=== PATIENT | female | born 1945 | race Caucasian/White ===

== ENCOUNTER → 2017-03-31 | Outpatient (CLI) | payer MEDICARE ==
[~2017-03-31] MED LIST: DESYREL 50MG50 MG PO; GLUCOPHAGE500 MG/TAB PO; GLUCOTROL10 MG PO; HCTZ 25MG TAB25 MG PO; PRINIVIL20 MG PO; TENORMIN 5050 MG/TAB PO; ZOFRAN 4MG T4 MG/TAB PO
== END ==
LOC: SUN.DIA 12:43
DX: E11.40 Type 2 diabetes mellitus with diabetic neuropathy, unspecified (principal); I10 Essential (primary) hypertension; H91.90 Unspecified hearing loss, unspecified ear; F32.9 Major depressive disorder, single episode, unspecified; Z68.33 Body mass index [BMI] 33.0-33.9, adult; Z79.4 Long term (current) use of insulin; Z71.3 Dietary counseling and surveillance
CPT/HCPCS: G0108

== ENCOUNTER → 2017-04-03 | Outpatient (CLI) | payer MEDICARE | LOC: SUN.DIA 10:09 | DX: E11.9 Type 2 diabetes mellitus without complications (principal); Z79.4 Long term (current) use of insulin; I10 Essential (primary) hypertension; Z68.32 Body mass index [BMI] 32.0-32.9, adult; Z71.3 Dietary counseling and surveillance | CPT/HCPCS: G0108 ==

== ENCOUNTER → 2017-07-16 | Outpatient (CLI) | payer OTHER ==
[2017-07-16 09:17] LABS: BASO # 0.1 (0.0-0.2); BASO % 0.8 % (0.0-2.0); EOS # 0.1 (0.0-0.7); EOS % 1.9 % (0-4.0); GRAN # 5.1 (1.4-6.5); GRAN % 67.4 % (42.2-75.2); HEMATOCRIT 37.2 % (37.0-47.0); HEMOGLOBIN 12.3 g/dl (12.5-16.0); LYMPH # 1.7 (1.2-3.4); LYMPH % 22.9 % (20.0-51.0); MEAN CELL VOLUME 88 fl (80.0-100.0); MEAN CORPUSCULAR HEMOGLOBIN 29 pg (27.0-31.0); MEAN CORPUSCULAR HGB CONC 33 g/dl (33.0-37.0); MEAN PLATELET VOLUME 11.4 fl (7.4-10.4); MONO # 0.5 (0.1-0.6); MONO % 6.5 % (1.7-9.3); PLATELET COUNT 234 K/mm3 (130-400); RED BLOOD COUNT 4.21 M/mm3 (4.10-5.30); WHITE BLOOD COUNT 7.6 K/mm3 (4.8-10.8)
[2017-07-16 09:40] LABS: ERYTHROCYTE SEDIMENTATION RATE 38 mm/hr (0-30)
== END ==
LOC: COL.RAD 07:46
PROVIDERS: Orthopaedic Surgery Sports Medicine
DX: M25.512 Pain in left shoulder (principal)
CPT/HCPCS: J3301; Q9967

== ENCOUNTER → 2017-09-15 | Outpatient (CLI) | payer OTHER, MEDICARE | LOC: COL.RAD 12:54 | DX: M25.512 Pain in left shoulder (principal) | CPT/HCPCS: J3301 ==

== ENCOUNTER → 2017-11-17 | Outpatient (CLI) | payer OTHER, MEDICARE | LOC: MHCPAIN 10:12 | DX: G89.29 Other chronic pain (principal); M79.2 Neuralgia and neuritis, unspecified; M79.1 Myalgia | CPT/HCPCS: G0463 ==

== ENCOUNTER → 2017-12-31 | Outpatient (CLI) | payer OTHER, MEDICARE | LOC: MHCPAIN 09:50 | DX: G89.29 Other chronic pain (principal); M79.2 Neuralgia and neuritis, unspecified; M79.1 Myalgia; M25.512 Pain in left shoulder | CPT/HCPCS: G0463 ==

== ENCOUNTER → 2018-08-03 | Outpatient (CLI) | payer OTHER, MEDICARE, BC | LOC: COL.RAD 07-24 09:15 | DX: M25.512 Pain in left shoulder (principal) ==

== ENCOUNTER → 2018-09-07 | Outpatient (CLI) | payer OTHER, MEDICARE, BC | LOC: COL.RAD 08:00 | DX: M25.512 Pain in left shoulder (principal) ==

== ENCOUNTER → 2018-11-10 | Outpatient (REF) | LOC: ZLAB.WCH 16:04 | DX: Z01.89 Encounter for other specified special examinations (principal) ==

== ENCOUNTER → 2018-12-31 | Outpatient (CLI) | payer MEDICARE, BC | LOC: ZCOL.LAB 16:31 | DX: E11.621 Type 2 diabetes mellitus with foot ulcer (principal) ==

== ENCOUNTER → 2019-05-27 | Outpatient (CLI) | payer MEDICARE, BC ==
[~2019-05-27] MED LIST changes: +COLACE 100100 MG/CAP PO; +COREG12.5 MG PO; +DULCOLAX S10 MG/SUPP RC; +LEVEMIR100 U/ML SQ; +LOVENOX 3030 MG/0.3 SQ; +MIRALAX PA17 GM/Dose PO; +NEURONTIN600 MG/TAB PO; +NOVOLOG 100U100 U/M1 SQ; +PROTONIX 40MG T40 MG PO; +TYLENOL 325MG325 MG PO; +VANCOMYCIN500 MG/VIA IV; +ZESTRIL 20MG TA20 MG PO; +ZOFRAN8 MG PO
== END ==
LOC: ZCOL.LAB 12:26
DX: Z01.89 Encounter for other specified special examinations (principal)

== ENCOUNTER 2019-05-28 10:10 | Outpatient (RCR) | payer MEDICARE, BC ==
[~2019-05-28] VITALS: Ht 160 cm; Wt 75.0 kg
[~2019-05-28 10:10] MED LIST changes: -COLACE 100100 MG/CAP PO; -COREG12.5 MG PO; -DULCOLAX S10 MG/SUPP RC; -LEVEMIR100 U/ML SQ; -LOVENOX 3030 MG/0.3 SQ; -MIRALAX PA17 GM/Dose PO; -NEURONTIN600 MG/TAB PO; -NOVOLOG 100U100 U/M1 SQ; -PROTONIX 40MG T40 MG PO; -TYLENOL 325MG325 MG PO; -VANCOMYCIN500 MG/VIA IV; -ZESTRIL 20MG TA20 MG PO; -ZOFRAN8 MG PO
[2019-05-28 10:43] VITALS: BP 147/74; PULSE 82; TEMP 98
[2019-05-28] MEDS ORDERED: HCTZ 25MG TAB25 MG PO (12:33)
[2019-05-28] MEDS ORDERED: ZESTRIL 20MG TA20 MG PO (12:33)
[2019-05-28] MEDS ORDERED: LOVENOX 3030 MG/0.3 SQ (12:34)
[2019-05-28] MEDS ORDERED: VANCOMYCIN500 MG/VIA IV (12:38)
[2019-05-28] MEDS ORDERED: PROTONIX 40MG T40 MG PO (12:39)
[2019-05-28] MEDS ORDERED: COLACE 100100 MG/CAP PO (12:40)
[2019-05-28] MEDS ORDERED: NEURONTIN600 MG/TAB PO (12:40)
[2019-05-28] MEDS ORDERED: LEVEMIR100 U/ML SQ (12:40)
[2019-05-28] MEDS ORDERED: NOVOLOG 100U100 U/M1 SQ (12:41)
[2019-05-28] MEDS ORDERED: COREG12.5 MG PO (12:41)
[2019-05-28] MEDS ORDERED: MIRALAX PA17 GM/Dose PO (12:42)
[2019-05-28] MEDS ORDERED: ZOFRAN8 MG PO (12:42)
[2019-05-28] MEDS ORDERED: DULCOLAX S10 MG/SUPP RC (12:43)
[2019-05-28] MEDS ORDERED: TYLENOL 325MG325 MG PO (12:43)
== END 2019-05-28 12:44 | disposition short-term general hospital (02) ==
LOC: EUO 10:10
DX: L03.90 Cellulitis, unspecified (principal)
CPT/HCPCS: C1751

== ENCOUNTER 2020-02-01 20:40 | Inpatient (IN) | payer MEDICARE ==
[~2020-02-01] VITALS: Ht 160 cm; Wt 77.8 kg
[2020-02-01] VITALS (45 sets, daily range): BP systolic 128; BP diastolic 83; PULSE 79; TEMP 98.1; O2SAT 89–99
[~2020-02-01 20:40] MED LIST changes: +COLACE 100100 MG/CAP PO; +COREG12.5 MG PO; +DULCOLAX S10 MG/SUPP RC; +LEVEMIR100 U/ML SQ; +LOVENOX 3030 MG/0.3 SQ; +MIRALAX PA17 GM/Dose PO; +NEURONTIN600 MG/TAB PO; +NOVOLOG 100U100 U/M1 SQ; +PROTONIX 40MG T40 MG PO; +TYLENOL 500MG500 MG PO; +VANCOMYCIN500 MG/VIA IV; +ZESTRIL 20MG TA20 MG PO; +ZOFRAN8 MG PO
--- NOTE | 2020-02-01 22:30 | NUR ---
PT arrived to the unit at 2200 via EMS. PT transfered self to bed with assistance of staff, stated some dizziness. PT attached to [facility] and it was noted that PT was on 5mg/hr of Cardene from previous facility, continued per provider order. While asking the patient the suicide screening questions, PT answered yes to a majority of the questions. Provider, Esme AVILES, immediately notified and discussed patient mental health hx with the patient this RN to make a plan of care and discuss what the patient is feeling, why, and what we can do to help the PT be safe while being here. PT stated she had a suicide attempt 4 or so months ago by injecting herself with extra insulin but stated she failed because she was unsure as to how her insulin pen worked. States that she talks to several of her family members whenever she is feeling down. Provider gave order for level II suicide precautions. This RN asked STEFAN Victoria if the patient can keep her phone since her family is her main support system and provider stated that the PT can keep her phone. PT room made suicide safe and informed PT of the steps we were taking to keep her safe. Will continue to monitor closely.
[2020-02-02] VITALS (509 sets, daily range): BP systolic 127–185; BP diastolic 63–95; PULSE 77–90; TEMP 97.5–98.1; O2SAT 81–100
[2020-02-02] MEDS ORDERED: LEVEMIR100 U/ML SQ (00:33)
[2020-02-02 01:05] LABS: ACETAMINOPHEN < 10 ug/mL (10-30); ALCOHOL(ethanol),MEDICAL < 10 mg/dL; SALICYLATE < 1.0 mg/dL
[2020-02-02 01:33] LABS: TROPONIN-I 0.051 ng/mL (0.000-0.035)
[2020-02-02 03:12] LABS: CHOLESTEROL RISK RATIO 5.7
[2020-02-02 03:18] LABS: TRICYCLIC ANTIDEPRESS URINE NEGATIVE
[2020-02-02 05:00] LABS: BASO # 0.1 (0.0-0.2); BASO % 0.7 % (0.0-2.0); EOS # 0.1 (0.0-0.7); EOS % 1.4 % (0-4.0); GRAN # 7.6 (1.4-6.5); GRAN % 72.9 % (42.2-75.2); HEMOGLOBIN 10.8 g/dl (12.5-16.0); LYMPH # 1.8 (1.2-3.4); LYMPH % 17.8 % (20.0-51.0); MEAN CELL VOLUME 87 fl (80.0-100.0); MEAN CORPUSCULAR HEMOGLOBIN 30 pg (27.0-31.0); MEAN CORPUSCULAR HGB CONC 34 g/dl (33.0-37.0); MEAN PLATELET VOLUME 11.5 fl (7.4-10.4); MONO # 0.7 (0.1-0.6); MONO % 6.8 % (1.7-9.3); PLATELET COUNT 213 K/mm3 (130-400); RED BLOOD COUNT 3.65 M/mm3 (4.10-5.30); REDCELL DISTRIBUTION WIDTH-CV 13.7 % (11.5-14.5)
[2020-02-02 05:01] LABS: HEMATOCRIT 31.9 % (37.0-47.0)
[2020-02-02 05:08] LABS: CALCIUM 8.9 mg/dL (8.4-10.2); CREATININE, serum 1.17 (0.52-1.25); POTASSIUM 3.6 mmol/L (3.4-5.0)
--- NOTE | 2020-02-02 10:22 | NUR ---
SW's met with the patient to discuss discharge plan. The patient lives in [place] with her , Justyn (ph#[phone]). She reports independence with ADLs and has a cane and walker. The patient's PCP is Dr. Renata Cruz and she receives her medications at [facility]. She reports no difficulties obtaining her meds. The patient does not have advanced directives in EMR, but she reports that she does have them completed and that her daughter, Becca (ph#[phone]), is her DPOA-HC. Becca lives in [place]. The patient attempted suicide four months ago. She states that she does not see any one for her mental health. She states that her family is a great support system for her. The patient plans to return home with her upon discharge. DANUTA then contacted the patient's Justyn. Justyn confirmed the above information. He states that he will reach out to Becca to find out if she does have the DPOA-HC paperwork and will contact DANUTA back. DANUTA to ask for PT/OT to be ordered. DANUTA to continue to follow.
--- NOTE | 2020-02-02 11:23 | NUR ---
Pt up to BSC with x1 assist. Steady gait. Pt denies any vertigo or nausea with activity. Pt back to bed with x1 assist. Dr Alberto at bedside to see pt.
--- NOTE | 2020-02-02 13:40 | NUR ---
Talked with [employer] Screener on the phone. Will come in tomorrow February, at 11am to screen patient. Pt's facesheet faxed over their office, fax #[phone].
--- NOTE | 2020-02-02 13:51 | NUR ---
The patient's daughter, Becca, contacted DANUTA. Becca reports that she is the patient's DPOA-HC and that she does not have a copy of the forms. She states that [facility] should have a copy though. DANUTA contacted medical records at [facility]. Medical records reports that they do a copy of her DPOA-HC and will fax it to case management. DANUTA contacted and updated the patient's daughter.
--- NOTE | 2020-02-02 14:36 | NUR ---
Pt left for MRI with lead based paint technician via wheelchair.
--- NOTE | 2020-02-02 16:00 | NUR ---
Dr Susy dey with pt having dtr visit. Pt back to ICU bed 8 from MRI at 1550. Pt stand by assist to ICU bed, steady gait. Pt connected to CRM. Pt denies vertigo and pain. Pt's dtr updated on pt status and plan of care. Answered questions to dtr's satisfaction. Call light in reach.
[2020-02-03] VITALS (245 sets, daily range): BP systolic 138–195; BP diastolic 68–94; PULSE 70–100; TEMP 97.5–98.2; O2SAT 93–100
[2020-02-03 06:41] LABS: BASO # 0.1 (0.0-0.2); BASO % 0.8 % (0.0-2.0); EOS # 0.2 (0.0-0.7); EOS % 2.2 % (0-4.0); GRAN # 5.8 (1.4-6.5); LYMPH # 2.1 (1.2-3.4); LYMPH % 23.9 % (20.0-51.0); MEAN CELL VOLUME 87 fl (80.0-100.0); MEAN CORPUSCULAR HEMOGLOBIN 30 pg (27.0-31.0); MEAN CORPUSCULAR HGB CONC 34 g/dl (33.0-37.0); MEAN PLATELET VOLUME 11.2 fl (7.4-10.4); MONO # 0.6 (0.1-0.6); MONO % 6.6 % (1.7-9.3); PLATELET COUNT 247 K/mm3 (130-400); RED BLOOD COUNT 4.06 M/mm3 (4.10-5.30); REDCELL DISTRIBUTION WIDTH-CV 13.7 % (11.5-14.5)
[2020-02-03 06:43] LABS: HEMATOCRIT 35.5 % (37.0-47.0)
[2020-02-03 06:48] LABS: CALCIUM 9.5 mg/dL (8.4-10.2); CREATININE, serum 1.33 (0.52-1.25); POTASSIUM 3.7 mmol/L (3.4-5.0)
--- NOTE | 2020-02-03 09:42 | NUR ---
DANUTA received the patient's DPOA-HC, via fax, from [facility]. The patient had designated her , Josh, as her DPOA-HC and her daughter as the alternate. SW met with the patient to inform. The patient reports that this DPOA-HC is accurate and would like to keep her as her DPOA-HC. SW contacted and updated the patient's . SW placed the DPOA-HC is the patient's chart.
--- NOTE | 2020-02-03 10:14 | NUR ---
Ari screening complete: Plan is for Saftey Plan and ok to go home if medically stable - OK by screener for pt to have all belongings. Q15min suicide checks no longer required - MD Susy notified - order discontinued
--- NOTE | 2020-02-03 10:38 | NUR ---
aNvie obtained from [facility], given to PRAKASH Michele.
--- NOTE | 2020-02-03 14:37 | NUR ---
[facility] came and screened the patient and came up with a safety plan with her. PT worked with the patient and the patient did not feel good and did not feel comfortable ambulating. She states that she has "drop attacks." PT plans to attempt to work with her again this afternoon. SW then followed up with the patient to review discharge plan. The patient reports that she does not want to get home and then fail and have to return back here. She states that she has done post-acute rehab in the past and would be interested in rehab again. The patient chose 1) [facility] 2) [facility]. She states that she would not want to go to a intermediate. SW consulted Latoya at [facility] and [facility] with [facility]. SW awaiting their screens and will continue to follow.
--- NOTE | 2020-02-03 18:21 | NUR ---
PT ARRIVED TO FLOOR AND SETTLED IN TO ROOM. ORIENTED HER TO CALL LIGHT AND TV REMOTE. PT IN CHAIR, ICE WATER BROUGHT IN, WARM BLANKETS BROUGHT IN, PT BELONGINGS BROUGHT TO CHAIR PER PT REQUEST. DINNER DELIVERED TO ROOM. NO OTHER NEEDS AT THIS TIME.
--- NOTE | 2020-02-03 22:35 | NUR ---
IN TO ASSESS PATIENT. SHE WAS LAYING IN BED. PATIENT APPEARS TO THIS NURSE THAT SHE HAS A VERY FLAT AFFECT. SHE IS ALERT AND ORIENTATED X4. PATIENT HAS AN INT TO HER RIGHT FOREARM. LUNG SOUNDS ARE CLEAR.
[2020-02-04] VITALS (7 sets, daily range): BP systolic 129–187; BP diastolic 64–90; PULSE 82–88; TEMP 97.4–98.7
--- NOTE | 2020-02-04 05:30 | NUR ---
PATIENT HAS SLEPT THROUGH THE SHIFT WITH NO COMPLAINTS. PATIENT TOOK AT SHOWER AT AROUND 0500. PATIENT DENIES ANY OTHER NEEDS AT THIS TIME. WILL REPORT OFF TO DAY SHIFT. SHE HAS INT TO HER RW. SHE WAS GIVEN 4 U OF NOVOLOG AND LEVIMIR INSULIN AT FOR A BLOOD SUGAR OF 173. PATIENT JUST APPEARS TO HAVE A FLAT AFFECT WITH NO EMOTIONS SHOWN. PATIENT IS ON TELEY AND NO COMPLAINTS OR ISSUES NOTED THERE THROUGH OUT THE SHIFT. PATIENT HAS A POSSIBLE D/C TODAY (02/03) PENDING EEG PER PROVIDER NOTES.
--- NOTE | 2020-02-04 08:00 | NUR ---
Assessment complete. Patient A&Ox3, sitting up in the recliner. Denies pain and discomfort. IV CDI. HRR, telemetry on chest. VSS BP elevated. No further needs expressed from patient. Call light within reach.
[2020-02-04 10:23] LABS: BASO # 0.1 (0.0-0.2); BASO % 0.7 % (0.0-2.0); EOS # 0.1 (0.0-0.7); EOS % 1.5 % (0-4.0); GRAN # 5.4 (1.4-6.5); GRAN % 71.2 % (42.2-75.2); HEMOGLOBIN 11.6 g/dl (12.5-16.0); LYMPH # 1.5 (1.2-3.4); MEAN CELL VOLUME 86 fl (80.0-100.0); MEAN CORPUSCULAR HEMOGLOBIN 30 pg (27.0-31.0); MEAN CORPUSCULAR HGB CONC 34 g/dl (33.0-37.0); MEAN PLATELET VOLUME 11.7 fl (7.4-10.4); MONO # 0.5 (0.1-0.6); MONO % 6.1 % (1.7-9.3); RED BLOOD COUNT 3.91 M/mm3 (4.10-5.30); REDCELL DISTRIBUTION WIDTH-CV 13.9 % (11.5-14.5)
[2020-02-04 10:25] LABS: HEMATOCRIT 33.7 % (37.0-47.0); PLATELET COUNT 109 K/mm3 (130-400)
[2020-02-04 10:39] LABS: CALCIUM 9.6 mg/dL (8.4-10.2); CREATININE, serum 1.41 (0.52-1.25); POTASSIUM 4.2 mmol/L (3.4-5.0)
--- NOTE | 2020-02-04 15:52 | NUR ---
Automated Weaver followed up with PRAKASH Klein-CM who advised [facility] would not be able to accept any referrals over the weekend. DANUTA also followed up with [facility] Director who advised they do not have any beds. DANUTA attended clinical rounds with the team and patient may discharge tomorrow. DANUTA followed up with patient on placement options. Patient states she does not want to go to a half-way and would prefer to go home with Home Health services. Patient states she has had [facility] in the past and would be open to them again. Patient states she has been getting around better since yesterday. DANUTA collaborated with YOANNA Herbert who worked with patient today. Keon advised patient would be able to return home with HH services. DANUTA contacted Latasha at [facility] and faxed referral. Latasha advised they are likely able to accept. DANUTA followed up with patient who is in agreement with plan to discharge home with HH services. DANUTA will continue to follow.
--- NOTE | 2020-02-04 18:25 | NUR ---
Pt resting in recliner at this time. Denies any pain or concerns. IVF infusing without complications. No needs at this time.
[2020-02-05 05:10] VITALS: BP 152/66; PULSE 79; TEMP 97.6
--- NOTE | 2020-02-05 05:52 | NUR ---
PATIENT HAD AN UNEVENTFUL SHIFT. SHE WAS ABLE TO SLEEP OFF AN ON. PATIENT COMPLAINED OF HER IV PUMP GOING OFF A COUPLE OF TIMES. HER IV FLUSHED WITH NO DIFFICULTIES. PATIENT DENIES ANY OTHER NEEDS. WILL REPORT OFF TO DAY SHIFT.
[2020-02-05 07:41] LABS: CALCIUM 9.3 mg/dL (8.4-10.2); CREATININE, serum 1.35 (0.52-1.25); POTASSIUM 3.6 mmol/L (3.4-5.0)
[2020-02-05 07:50] VITALS: BP 182/78; PULSE 83; TEMP 97.9
[2020-02-05] MEDS ORDERED: ZESTRIL40 MG PO (09:26)
[2020-02-05] MEDS ORDERED: ASPIRIN E.C. 8181 MG PO (09:26)
[2020-02-05] MEDS ORDERED: NORVASC 10MG10 MG PO (09:27)
[2020-02-05] MEDS ORDERED: TOPROL XL 50MG50 MG PO (09:27)
[2020-02-05] MEDS ORDERED: LIPITOR 40MG TA40 MG PO (09:27)
[2020-02-05 10:32] VITALS: BP 149/69; PULSE 80
--- NOTE | 2020-02-05 10:55 | NUR ---
Pt assessment completed and charted, alert, oriented, independent, roomair. Morning meds provided as per OCT, tolerated well. I/V line flushed without complications. Pt had a breafast, rested on chair. No N/V/D, pain, numbness, tingling, SOB as per pt. No further needs at this time, working on her discharge procedure.
--- NOTE | 2020-02-05 12:10 | NUR ---
Pt discharge procedure completed, discharge teaching has been provided. Wheeled down the pt to the ER department by SVITLANA Church.
--- NOTE | 2020-02-05 16:29 | NUR ---
MELANIE received a call from [facility], who inquired about patients current status. MELANIE informed Verito that patient had been discharged and that discharge paperwork would be faxed. Melanie received fax number [phone]. MELANIE faxed documents and contacted [facility] to confirm that documents were received.
[2020-02-08] MEDS ORDERED: OMNICEF 300MG300 MG PO (20:41)
== END 2020-02-05 11:50 | disposition home or self-care (01) | DRG 281 ==
LOC: IMCU 20:40 → ICU 22:00 → MEDICAL 02-03 18:17
PROVIDERS: Hospitalist; Nurse Practitioner Family; Student in an Organized Health Care Education/Training Program; ADMIT Internal Medicine
DX: I16.1 Hypertensive emergency (principal); I21.A1 Myocardial infarction type 2; N17.9 Acute kidney failure, unspecified; F32.9 Major depressive disorder, single episode, unspecified; E11.43 Type 2 diabetes mellitus with diabetic autonomic (poly)neuropathy; I95.1 Orthostatic hypotension; E78.5 Hyperlipidemia, unspecified; I12.9 Hypertensive chronic kidney disease with stage 1 through stage 4 chronic kidney disease, or unspecified chronic kidney disease; N18.3 Chronic kidney disease, stage 3 (moderate); E11.22 Type 2 diabetes mellitus with diabetic chronic kidney disease; Z89.412 Acquired absence of left great toe; Z79.4 Long term (current) use of insulin
CPT/HCPCS: 99223-AI; 99232-AI; 99233-AI; A9585; J0360; J1644; J1815; J2405; J7030; J7050

== ENCOUNTER 2020-02-05 23:08 | Inpatient (IN) | payer MEDICARE ==
[~2020-02-05] VITALS: Ht 160 cm; Wt 82.0 kg
[~2020-02-05 23:08] MED LIST changes: +ASPIRIN E.C. 8181 MG PO; +LIPITOR 40MG TA40 MG PO; +NORVASC 10MG10 MG PO; +TOPROL XL 50MG50 MG PO; +ZESTRIL40 MG PO
[2020-02-06 02:39] VITALS: BP 158/87; PULSE 80; TEMP 97.7
--- NOTE | 2020-02-06 03:46 | NUR ---
Pt arrived to nursing unit at 0245 from ED. Pt oriented to room and call light. Pt assessment completed and documented at this time. Med rec completed by PRAKASH Valentine. Pt alert and oriented x4. Skin assessment documented. Complaints of throbbing pain to right ankle. IVF infusing per orders to right forearm IV site. Pt assisted in using bedpan at this time. Pt denies any other needs at this time. Call light within reach. Bed alarm on. Will continue to monitor.
--- NOTE | 2020-02-06 05:05 | NUR ---
day care supervisor, Kaleb, notified this RN that pt may have to have surgery today and to keep pt NPO until ortho is able to see pt.
--- NOTE | 2020-02-06 05:25 | NUR ---
Pt able to rest some since admit to floor. Right leg splinted and elevated on a pillow per pt request. PRN norco ordered and given per orders for right ankle pain that is described as intermittent throbbing. IVF infusing per orders to right forearm IV site. Pt denies any other needs at this time. Call light within reach. Will continue to monitor.
--- NOTE | 2020-02-06 07:00 | NUR ---
REPORT GIVEN TO PRAKASH GARCIA
[2020-02-06 07:24] LABS: BASO # 0.1 (0.0-0.2); BASO % 0.4 % (0.0-2.0); EOS # 0.1 (0.0-0.7); EOS % 1.1 % (0-4.0); GRAN # 8.3 (1.4-6.5); GRAN % 74.6 % (42.2-75.2); LYMPH # 1.9 (1.2-3.4); MEAN CELL VOLUME 89 fl (80.0-100.0); MEAN CORPUSCULAR HGB CONC 33 g/dl (33.0-37.0); MEAN PLATELET VOLUME 11.4 fl (7.4-10.4); MONO # 0.7 (0.1-0.6); MONO % 6.4 % (1.7-9.3); RED BLOOD COUNT 3.37 M/mm3 (4.10-5.30); REDCELL DISTRIBUTION WIDTH-CV 14.3 % (11.5-14.5)
[2020-02-06 07:42] LABS: HEMATOCRIT 30.1 % (37.0-47.0); HEMOGLOBIN 9.9 g/dl (12.5-16.0); MEAN CORPUSCULAR HEMOGLOBIN 29 pg (27.0-31.0)
[2020-02-06 07:43] LABS: ALBUMIN 3.3 gm/dL (3.5-5.0); BILIRUBIN,TOTAL 0.4 mg/dL (0.0-1.0); CALCIUM 8.9 mg/dL (8.4-10.2); CREATININE, serum 1.32 (0.52-1.25); PLATELET COUNT 215 K/mm3 (130-400); POTASSIUM 3.8 mmol/L (3.4-5.0); TOTAL PROTEIN 6.1 gm/dL (6.4-8.2)
[2020-02-06 07:56] LABS: PROTHROMBIN TIME 11.3 SECONDS (9.7-12.8)
[2020-02-06 09:20] VITALS: BP 158/74; PULSE 79; TEMP 97.9
--- NOTE | 2020-02-06 09:45 | NUR ---
Pt assessment complete. Pt is laying in bed upon entry, she is A/O x4. Pt currently reports pain 8/10, splinted R leg elevated on an extra pillow, ice applied. Pt has no N/V. Breakfast ordered for patient. IVF infusing without complications. Pt voices concerns to nurse and PA about going home as she has multiple levels, asking if she can stay in swing bed. Discussed that social work will be involved in decision making. Call light within reach.
[2020-02-06 11:31] VITALS: BP 100/85; PULSE 87; TEMP 97.9
[2020-02-06 12:40] LABS: COLLECTION METHOD CLEAN CATCH
[2020-02-06 12:46] LABS: MUCOUS Present /lpf; PH 7 (5-8); SQUAMOUS EPITHELIAL 0-2 /hpf; URINE APPEARANCE Turbid; URINE BACTERIA Rare /hpf; URINE BILIRUBIN Negative (NEGATIVE); URINE BLOOD 3+ (NEGATIVE); URINE COLOR Yellow; URINE GLUCOSE Negative (NEGATIVE); URINE KETONE Negative (NEGATIVE); URINE LEUKOCYTE ESTERASE 3+ (NEGATIVE); URINE NITRATE Positive (NEGATIVE); URINE PROTEIN(semi-quant) 2+ (NEGATIVE); URINE RBC 20-50 /hpf; URINE UROBILINOGEN Negative (NEGATIVE)
--- NOTE | 2020-02-06 13:02 | NUR ---
Plan: To return home with Josh [phone] as care support and EMR. Patient also listed her daughter Becca [phone]. Patient reportd that she does have a DPOA. They reside in [place]. Assess: SW met with patient at her bedside. Patient reported that she does have a walker and a cane, and that her PCP is Dr. Cruz, and that she does not have any upcoming appointments. patient reported that she gets her medications from [facility] [place] with no concerns. Patient was open to care from [facility] out of [place] or [facility]. Action: hospitalist spoke with Sw about seeing about services with both facilities. Sw will continue to follow.
[2020-02-06 16:51] VITALS: BP 135/68; PULSE 85; TEMP 98.3
--- NOTE | 2020-02-06 19:04 | NUR ---
Pt reported intermittent pain through the day. Relieved with PRN pain medications, elevation and ice. Pt did get up to bedside cammode with use of walker and 1A. Frequent urination. No needs at this time. Call light within reach.
[2020-02-06 20:45] VITALS: BP 124/52; PULSE 84; TEMP 98.7
--- NOTE | 2020-02-06 21:00 | NUR ---
Patient assessed at this time. Alert and oriented x 4, and able to make needs known. Denies having pain and discomfort. Peripheral INT to right forearm. Fluids discontinued. Denies having SOB and dyspnea. LS CTA. Respirations even and unlabored. HRR. Capillary refill less than 3 seconds. BSAx4. Abdomen soft and non-tender. No edema. Used bedpan. Splint to RLE CDI. Able to wiggle toes. No discoloration. Capillary refill less than 3 seconds. Voices no questions, needs, or concerns at this time. Ice pack to right ankle. Resting in bed with call light within reach. High fall risk precautions in place. Bed alarm on.
[2020-02-07 01:00] VITALS: BP 152/63; PULSE 82; TEMP 98.2
--- NOTE | 2020-02-07 01:04 | NUR ---
Complaining of level 6 pain to right ankle. Has been elevated on pillow, and ice pack to area. Given PRN [place] for pain. Repositioned in bed. Voices no further questions, needs, or concerns at this time. High fall risk precautions remain in place. Call light within reach.
[2020-02-07 04:46] VITALS: BP 132/56; PULSE 76; TEMP 98.3
--- NOTE | 2020-02-07 04:57 | NUR ---
Patient given PRN APAP for level 4 pain to right ankle at this time.
--- NOTE | 2020-02-07 05:50 | NUR ---
Patient has received [place] once and Acetaminophen once this shift for pain. Has been keeping right leg elevated to two pillows, with ice to ankle. Splint remains in place, CDI. Has been using bedpan for toileting this shift. Voices no questions, needs, or concerns at this time. Resting in bed with call light within reach. High fall risk precautions remain in place due to history of falls. Bed alarm is on.
--- NOTE | 2020-02-07 07:34 | NUR ---
RECEIVED BEDSIDE REPORT FROM PRAKASH CUETO. PATIENT IS RESTING IN BED WITH RIGHT LEG ELEVATED, ICE PACK IS IN PLACE, EYES ARE CLOSED. CALL LIGHT AND PERSONAL ITEMS ARE WITHIN REACH.
[2020-02-07 07:52] LABS: BASO # 0.1 (0.0-0.2); BASO % 0.7 % (0.0-2.0); EOS # 0.2 (0.0-0.7); EOS % 2.7 % (0-4.0); GRAN # 5.5 (1.4-6.5); GRAN % 64.2 % (42.2-75.2); LYMPH # 2.1 (1.2-3.4); LYMPH % 23.9 % (20.0-51.0); MEAN CELL VOLUME 91 fl (80.0-100.0); MEAN CORPUSCULAR HGB CONC 33 g/dl (33.0-37.0); MONO # 0.7 (0.1-0.6); MONO % 8.2 % (1.7-9.3); PLATELET COUNT 196 K/mm3 (130-400); RED BLOOD COUNT 3.18 M/mm3 (4.10-5.30); REDCELL DISTRIBUTION WIDTH-CV 14.3 % (11.5-14.5)
[2020-02-07 08:00] LABS: CALCIUM 8.9 mg/dL (8.4-10.2); POTASSIUM 3.9 mmol/L (3.4-5.0)
[2020-02-07 08:01] LABS: CREATININE, serum 1.44 (0.52-1.25)
[2020-02-07 08:22] LABS: HEMATOCRIT 28.8 % (37.0-47.0); HEMOGLOBIN 9.6 g/dl (12.5-16.0); MEAN CORPUSCULAR HEMOGLOBIN 30 pg (27.0-31.0)
[2020-02-07 08:26] VITALS: BP 150/63; PULSE 79; TEMP 98.1
[2020-02-07 08:29] VITALS: BP 163/73; PULSE 82; TEMP 98.4
--- NOTE | 2020-02-07 10:25 | NUR ---
SW met with the patient to follow up about post-acute rehab. The patient is agreeable to rehab and chose 1) [facility] 2) [facility]. SW contacted and faxed a referral to both facilities. SW awaiting their screens. SW contacted and updated the patient's , Josh. Josh is agreeable to the plan.
[2020-02-07 11:18] VITALS: BP 133/60; PULSE 78; TEMP 98.1
--- NOTE | 2020-02-07 13:01 | NUR ---
Larissa, at [facility], reports that they are unable to accept the patient. SW to inform the patient. Awaiting [facility]OPE's screen.
--- NOTE | 2020-02-07 14:19 | NUR ---
First visit from the nurse auditor. No needs right now.
--- NOTE | 2020-02-07 15:14 | NUR ---
parking worker contacted [facility] [place] and advised that patient was readmitted and we are working towards placement.
--- NOTE | 2020-02-07 15:41 | NUR ---
Laura, at [facility], reports that they are able to accept the patient today and that the accepting provider would be DIANE Luna. DANUTA notified the hospitalist for the doc-to-doc call. DANUTA updated the patient and her daughter, Becca, via phone. They were both agreeable to the discharge. The patient is to discharge today, 02/06, to [facility]. Transportation is to be by private vehicle, via the patient's daughter or around 1700. DANUTA notified Laura at [facility] of tentative departure time. No additional needs at this time.
[2020-02-07] MEDS ORDERED: NORCO 325 MG-51 TAB PO (15:53)
--- NOTE | 2020-02-07 19:22 | NUR ---
PATIENT DISCHARGED TO SWING BED AT THE [facility]. REPORTS WAS GIVEN TO TANA. PATIENT DISCHARGED VIA PRIVATE VEHICLE AND WAS ASSISTED IN TO CAR WITH THE HELP FROM STAFF.
[2020-02-08] MEDS ORDERED: OMNICEF 300MG300 MG PO (20:41)
== END 2020-02-07 16:50 | disposition swing bed (61) | DRG 563 ==
LOC: COL.ER 23:08 → MEDICAL 02-06 01:43
PROVIDERS: Nurse Practitioner; Physician Assistant; ADMIT Student in an Organized Health Care Education/Training Program
PROC: 0QSLXZZ Reposition Right Tarsal, External Approach (ICD-10-PCS; principal; 2020-02-06)
PROC: 0QSGXZZ Reposition Right Tibia, External Approach (ICD-10-PCS; 2020-02-06)
DX: S82.841A Displaced bimalleolar fracture of right lower leg, initial encounter for closed fracture (principal); N17.9 Acute kidney failure, unspecified; W19.XXXA Unspecified fall, initial encounter; Y93.89 Activity, other specified; Y92.009 Unspecified place in unspecified non-institutional (private) residence as the place of occurrence of the external cause; Y99.8 Other external cause status; D72.829 Elevated white blood cell count, unspecified; N18.3 Chronic kidney disease, stage 3 (moderate); F32.9 Major depressive disorder, single episode, unspecified; E11.22 Type 2 diabetes mellitus with diabetic chronic kidney disease; E11.40 Type 2 diabetes mellitus with diabetic neuropathy, unspecified; Z89.412 Acquired absence of left great toe; I12.9 Hypertensive chronic kidney disease with stage 1 through stage 4 chronic kidney disease, or unspecified chronic kidney disease; Z90.710 Acquired absence of both cervix and uterus; Z87.891 Personal history of nicotine dependence; Z96.659 Presence of unspecified artificial knee joint; Z90.49 Acquired absence of other specified parts of digestive tract; Z79.4 Long term (current) use of insulin; Z79.82 Long term (current) use of aspirin
CPT/HCPCS: 99222-AI; 99239; A9284; J1644; J1815; J2270; J2405; J3010; J7030

== ENCOUNTER 2020-02-16 09:04 | Day surgery (SDC) | payer MEDICARE ==
[~2020-02-16] VITALS: Ht 160 cm; Wt 77.3 kg
[2020-02-16] VITALS (8 sets, daily range): BP systolic 141–169; BP diastolic 68–107; PULSE 75–81; TEMP 97.3–97.8
[~2020-02-16 09:04] MED LIST changes: +NORCO 325 MG-51 TAB PO; +OMNICEF 300MG300 MG PO; +ZOFRAN ODT4 MG PO; -ZOFRAN8 MG PO
[2020-02-16] MEDS ORDERED: DULCOLAX STOOL100 MG PO (10:38)
[2020-02-16] MEDS ORDERED: NOVLOG (10:42)
[2020-02-16] MEDS ORDERED: LOVENOX 3030 MG/0.3 SQ (10:44)
[2020-02-16] MEDS ORDERED: MACROBID 1100 MG/CAP PO (10:45)
[2020-02-16] MEDS ORDERED: MIRALAX PA17 GM/Dose PO (10:46)
[2020-02-16] MEDS ORDERED: PEPCID 20MG TAB20 MG PO (10:48)
[2020-02-16] MEDS ORDERED: ANUSOL HC CREAM30 GM TP (10:49)
[2020-02-16] MEDS ORDERED: BENADRYL25 M2 PO (10:52)
[2020-02-16] MEDS ORDERED: DULCOLAX TAB5 MG PO (10:52)
[2020-02-16] MEDS ORDERED: NORCO 325 MG-51 TAB PO (10:54)
[2020-02-16] MEDS ORDERED: ASPI325T6 PO (13:17)
--- NOTE | 2020-02-16 13:50 | NUR ---
Pt to [facility] bay 1 via cart from PACU. Pt drowsy, but awakens easily. Pt denies pain. Buck wrap/splint dressing to RLE is clean, dry, and intact. Ice pack to ankle. Right toes are warm, dry, and pink. Pt denies sensation to RLE due to block placement. Pt does have little movement to right toes. RLE elevated on pillows. Water given per pt request. Pt wanting a chocolat shake, but pt is diabetic and nurse explains to pt that we are not able to provide this for her due to the ADA diet. Pt voices understanding. Will continue to monitor. Call light within reach.
--- NOTE | 2020-02-16 14:05 | NUR ---
Pt continues to rest. Denies pain or nausea. Call light within reach.
--- NOTE | 2020-02-16 14:20 | NUR ---
Pt continues to rest. Denies pain. [place] given per pt request. Will continue to monitor.
--- NOTE | 2020-02-16 14:35 | NUR ---
Pt sleeping. Respirations even and unlabored. Call light within reach.
--- NOTE | 2020-02-16 15:05 | NUR ---
Pt continues to rest. Denies needs. Call light within reach.
--- NOTE | 2020-02-16 15:35 | NUR ---
Report given to Cathryn RANDALL at [facility]. Pt is to return to swingbed status there when dissmissed. Questions invited and answered.
--- NOTE | 2020-02-16 16:04 | NUR ---
Discharge instructions reviewed with pt. Pt voices understanding. IV left in place per Cathryn RANDALL at [facility] request. IV saline locked and covered with coband. Pt assisted with dressing and transfer to wheel chair. Pt escorted to private car via wheel chair. Pt's here to transfer pt back to [facility]. Discharge packet sent with pt.
== END 2020-02-16 16:04 | disposition swing bed (61) ==
LOC: SDCO 09:04
DX: S82.851A Displaced trimalleolar fracture of right lower leg, initial encounter for closed fracture (principal); I10 Essential (primary) hypertension; E11.9 Type 2 diabetes mellitus without complications; N39.0 Urinary tract infection, site not specified; D64.9 Anemia, unspecified; Z20.828 Contact with and (suspected) exposure to other viral communicable diseases; Z96.659 Presence of unspecified artificial knee joint; Z90.710 Acquired absence of both cervix and uterus; Z79.82 Long term (current) use of aspirin; Z79.4 Long term (current) use of insulin; Z90.49 Acquired absence of other specified parts of digestive tract
CPT/HCPCS: C1713; J0690; J1100; J2250; J2405; J2704; J3010; J7120

== ENCOUNTER → 2020-08-21 | Outpatient (REF) | payer MEDICARE ==
[~2020-08-21] MED LIST changes: +ANUSOL HC CREAM30 GM TP; +ASPI325T6 PO; +BENADRYL25 M2 PO; +DULCOLAX STOOL100 MG PO; +DULCOLAX TAB5 MG PO; +MACROBID 1100 MG/CAP PO; +NOVLOG; +PEPCID 20MG TAB20 MG PO
[2020-08-21 22:11] LABS: CLOSTRIDIUM DIFF A/B INTERP NonToxigenic C.diff
[2020-08-21 22:19] LABS: CLOSTRIDIUM DIFF A/B NEG
== END ==
LOC: ZCOL.LAB 19:00
PROVIDERS: Family Medicine
DX: Z01.89 Encounter for other specified special examinations (principal)

== ENCOUNTER → 2020-09-15 | Outpatient (REF) | payer MEDICARE | LOC: ZCOL.LAB 18:08 | DX: E13.621 Other specified diabetes mellitus with foot ulcer (principal) ==

== ENCOUNTER 2021-02-12 07:21 | Day surgery (SDC) | payer MEDICARE ==
[~2021-02-12] VITALS: Ht 160 cm; Wt 80.4 kg
[2021-02-12 08:48] VITALS: BP 192/75; PULSE 80; TEMP 97.7
[2021-02-12] MEDS ORDERED: BACTRIM DS 8001 TAB PO (09:00)
[2021-02-12 11:10] VITALS: BP 163/71; PULSE 78
--- NOTE | 2021-02-12 11:10 | NUR ---
TO RM 6 PER CART FROM OR. ALERT ORIENTED X3, AND REQUESTED TO JUST REST. DRESSINGS CLEAN DRY INTACT RIGHT FOOT. DENIES PAIN OR DISCOMFORT. DENIES NAUSEA OR VOMITING.
[2021-02-12 11:25] VITALS: BP 180/87; PULSE 75
--- NOTE | 2021-02-12 11:25 | NUR ---
SITTING UP AND RECEIVED CRANBERRY JUICE AND MUFFIN.
[2021-02-12 11:40] VITALS: BP 190/96; PULSE 73
--- NOTE | 2021-02-12 11:40 | NUR ---
ATE 100% AND TOLERATED WELL.
--- NOTE | 2021-02-12 11:55 | NUR ---
AMBULATED TO BATHROOM WITH WALKER AND POST OP SHOE ON.
--- NOTE | 2021-02-12 12:15 | NUR ---
RECEIVED DISCHARGE INSTRUCTIONS AND VERBALIZED UNDERSTANDING. DISCONTINED IV AND INT- CATHETER INTACT. PATIENT ASSISTED DRESSED. WENT TO GET THE CAR.
--- NOTE | 2021-02-12 12:30 | NUR ---
DISCHARGED PER WC BY NURSING STAFF TO PRIVATE CAR IN CARE OF ROBERT.
== END 2021-02-12 12:43 | disposition home or self-care (01) ==
LOC: SDCO 07:21
DX: I96 Gangrene, not elsewhere classified (principal); E11.52 Type 2 diabetes mellitus with diabetic peripheral angiopathy with gangrene; E11.40 Type 2 diabetes mellitus with diabetic neuropathy, unspecified; E11.621 Type 2 diabetes mellitus with foot ulcer; E11.610 Type 2 diabetes mellitus with diabetic neuropathic arthropathy; M86.171 Other acute osteomyelitis, right ankle and foot; I10 Essential (primary) hypertension; I21.A1 Myocardial infarction type 2; E11.9 Type 2 diabetes mellitus without complications; D64.9 Anemia, unspecified; Z20.822 Contact with and (suspected) exposure to COVID-19; Z79.899 Other long term (current) drug therapy; Z79.4 Long term (current) use of insulin; Z79.82 Long term (current) use of aspirin; Z87.891 Personal history of nicotine dependence
CPT/HCPCS: J2704; J2795; J7030

== ENCOUNTER → 2021-06-15 | Outpatient (CLI) | payer MEDICARE ==
[~2021-06-15] MED LIST changes: +BACTRIM DS 8001 TAB PO
== END ==
LOC: ZCOL.LAB 17:44
DX: E13.621 Other specified diabetes mellitus with foot ulcer (principal)

== ENCOUNTER → 2021-10-22 | Outpatient (CLI) | payer MEDICARE | LOC: ZCOL.LAB 17:00 | DX: E13.621 Other specified diabetes mellitus with foot ulcer (principal); L84 Corns and callosities; M14.679 Charcot's joint, unspecified ankle and foot ==

== ENCOUNTER 2021-12-05 07:28 | Day surgery (SDC) | payer MEDICARE ==
[~2021-12-05] VITALS: Ht 160 cm; Wt 78.9 kg
[2021-12-05] VITALS (7 sets, daily range): BP systolic 133–188; BP diastolic 64–88; PULSE 78–81; TEMP 97.2–97.4
[2021-12-05] MEDS ORDERED: NORVASC 5MG5 MG/TAB PO (08:03)
[2021-12-05] MEDS ORDERED: MACROBID 1100 MG/CAP PO (08:04)
[2021-12-05] MEDS ORDERED: OMNICEF 300MG300 MG PO (08:04)
[2021-12-05] MEDS ORDERED: TOPROL XL100 MG PO (08:04)
[2021-12-05] MEDS ORDERED: PRINIVIL10 MG PO (08:05)
[2021-12-05] MEDS ORDERED: ZOFRAN ODT4 MG PO (08:35)
--- NOTE | 2021-12-05 10:16 | NUR ---
The patient arrived back to [facility] from the operating room at this time. The patient appears alert and oriented and denies any pain or nausea at this time. The patient received a nerve block pre operative that appears to be working well for pain control. Call light is within reach. Family at bedside. The patient denies wanting anything to eat or drink at this time. The patient's brian wrap dressing and post op shoe appear clean, dry and intact to her left foot.
--- NOTE | 2021-12-05 10:31 | NUR ---
The patient appears to be resting comfortably on the cart at this time. Respirations even and unlabored. Call light is within reach. Family remains at bedside.
--- NOTE | 2021-12-05 10:46 | NUR ---
The patient continues to deny any pain or nasuea at this time. The patient's blood pressure has increased but it remains within her initial set of vital signs pre operatively. Family remains at her bedside.
--- NOTE | 2021-12-05 11:01 | NUR ---
The patient agrees to try a muffin and water at this time. The patient's blood pressure continues to appear elevated but the patient is having intermittent shaking. The patient was disconnected from the dynamap and the vital signs will be rechecked again later.
--- NOTE | 2021-12-05 11:30 | NUR ---
The patient is sitting up in bed talking with her family and eating her muffin. She appears to be resting comfortably on the cart at this time.
--- NOTE | 2021-12-05 11:50 | NUR ---
The patient's blood pressure was rechecked with a result of 153/79. The patient voices a desire to be discharged home and instructions were reviewed with the patient and her family at this time. They all verbalized understanding and have no questions for the nurse at this time. The patient's IV to her left forearm was removed and a pressure dressing was applied to the site.
--- NOTE | 2021-12-05 12:00 | NUR ---
The patient was taken in the wheelchair and then transferred to the toilet with the assistance of one nure and appared to tolerate the activity well. The patient voided without difficulty and is ready to get dressed for discharge.
--- NOTE | 2021-12-05 12:10 | NUR ---
The patient's daughter assisted her to get dressed and she is ready to be escorted out. The patient was escorted out via wheelchair to a private vehicle by PRAKASH Garcia. The patient's belongings and discharge paperwork were sent with her. The patient's daughter is present to drive her home.
== END 2021-12-05 12:10 | disposition home or self-care (01) ==
LOC: SDCO 07:28
DX: M86.9 Osteomyelitis, unspecified (principal)
CPT/HCPCS: J0690; J2704; J2795; J3010; J7120

== ENCOUNTER 2023-05-21 21:17 | Emergency (ER) | payer MEDICARE ==
[~2023-05-21] VITALS: Ht 160 cm; Wt 72.7 kg
[~2023-05-21 21:17] MED LIST changes: +ACIDOPHILIS PO; +ANTIVERT 12.512.5 MG PO; +ASPIRIN 81M81 MG/TA2 PO; +CALCITRIOL PO; +CLEOCIN HCL300 MG PO; +DIFLUCAN150 MG PO; +DOXYCYCLINE 10100 MG PO; +FERROUS SU325 MG/TAB PO; +FOLIC ACID 11 MG/TA1 PO; +INSULIN R (N100 U/ML SQ; +LASIX 20MG TABL20 MG PO; +LIPITOR20 MG PO; +NORVASC 5MG5 MG/TAB PO; +NOVOLIN N100 UNIT/1 SQ; +NOVOLIN R100 U/ML SQ; +PLAVIX 75MG TAB75 MG PO; +PRINIVIL10 MG PO; +SODIUM BICARBO650 MG PO; +TOPROL XL100 MG PO; +TRULICITY1.5 MG/0.5 SQ; +TYLENOL 325MG325 MG PO; +ZOLOFT 25MG25 MG PO
[2023-05-21 21:29] VITALS: TEMP 97.6
[2023-05-21 22:43] LABS: BASO # 0.1 K/mm3 (0.0-0.2); BASO % 0.4 % (0.0-2.0); EOS # 0.2 K/mm3 (0.0-0.7); EOS % 1.9 % (0.0-4.0); GRAN # 9.5 K/mm3 (1.4-6.5); GRAN % 83.2 % (42.2-75.2); HEMOGLOBIN 10.6 g/dl (12.5-16.0); LYMPH # 0.9 K/mm3 (1.2-3.4); LYMPH % 7.9 % (20.0-51.0); MEAN CELL VOLUME 85 fl (80.0-100.0); MEAN CORPUSCULAR HEMOGLOBIN 28 pg (27-31); MEAN CORPUSCULAR HGB CONC 33 g/dl (33.0-37.0); MONO # 0.7 K/mm3 (0.1-0.6); MONO % 6.2 % (1.7-9.3); PLATELET COUNT 214 K/mm3 (130-400); RED BLOOD COUNT 3.78 M/mm3 (4.10-5.30)
[2023-05-21 22:50] LABS: PROTHROMBIN TIME 10.9 SECONDS (9.7-12.8)
[2023-05-21 22:53] LABS: PARTIAL THROMBOPLASTIN TIME 27.2 SECONDS (26.0-37.0)
[2023-05-21 22:57] LABS: ALBUMIN 2.9 gm/dL (3.4-4.8); BILIRUBIN,TOTAL 0.2 mg/dL (0.2-1.2); CALCIUM 8.7 mg/dL (8.4-10.2); CREATININE, serum 2.02 mg/dL (0.57-1.11); POTASSIUM 4.7 mmol/L (3.5-4.5); TOTAL PROTEIN 5.9 gm/dL (6.2-8.1)
[2023-05-22 01:35] VITALS: BP 126/79; PULSE 80
== END 2023-05-22 01:41 | disposition short-term general hospital (02) ==
LOC: COL.ER 21:17
PROVIDERS: Emergency Medicine
DX: S82.301B Unspecified fracture of lower end of right tibia, initial encounter for open fracture type I or II (principal); W18.30XA Fall on same level, unspecified, initial encounter; Y92.511 Restaurant or cafe as the place of occurrence of the external cause
CPT/HCPCS: A4314; J0696; J3010; J3370; J7030; J7050